=== PATIENT | female | born 2000 | race Caucasian/White ===

== ENCOUNTER 2018-06-01 07:24 | Emergency (ER) | payer OTHER ==
[~2018-06-01] VITALS: Ht 162.6 cm; Wt 83.2 kg
[2018-06-01 08:29] LABS: MEAN CORPUSCULAR HEMOGLOBIN 30.2 pg (27.0-34.8); MEAN CORPUSCULAR VOLUME 88.8 fL (80-100); MEAN PLATELET VOLUME 8.7 fL (7.4-10.4); PLATELET COUNT 224 x10^3/uL (130-400); RED BLOOD COUNT 4.59 x10^6/uL (3.82-5.3); RED CELL DISTRIBUTION WIDTH 12.5 % (9.6-15.2)
[2018-06-01 08:33] LABS: ALANINE AMINOTRANSFERASE 18 U/L (12-78); ALBUMIN 3.5 g/dL (3.4-5.0); ANION GAP 9 mmol/L (5-15); CALCIUM 8.6 mg/dL (8.5-10.1); CHLORIDE 110 mmol/L (98-107); CREATININE 1.12 mg/dL (0.55-1.02)
[2018-06-01 08:36] LABS: ALKALINE PHOSPHATASE 42 U/L (45-117); BILIRUBIN,TOTAL 0.3 mg/dL (0.2-1.0)
[2018-06-01 08:45] LABS: HCG UR SG 1.016 (1.003-1.030)
[2018-06-01 08:46] LABS: CULTURE INDICATED? YES; MICROSCOPIC INDICATED
[2018-06-01 08:46] LABS: BASOPHILS # (AUTO) 0.04 x10^3/uL (0-0.3); BASOPHILS % (AUTO) 0 % (0-1); EOSINOPHILS # (AUTO) 0.15 x10^3/uL (0-0.8); EOSINOPHILS % (AUTO) 1 % (1-7); LYMPHOCYTES # (AUTO) 2.34 x10^3/uL (1-6.1); LYMPHOCYTES % (AUTO) 19 % (22-44); MD SCAN; MONOCYTES # (AUTO) 1.75 x10^3/uL (0-1.4); MONOCYTES % (AUTO) 14 % (2-9); NEUTROPHILS # (AUTO) 7.93 x10^3/uL (1.8-8.0); NEUTROPHILS % (AUTO) 65 % (42-75)
[2018-06-01 10:31] VITALS: BP 103/53
== END 2018-06-01 10:33 | disposition home or self-care (01) ==
LOC: ED 09:23
DX: N10 Acute pyelonephritis (principal); N39.0 Urinary tract infection, site not specified
CPT/HCPCS: 36415; 76830; 80053; 81001; 81025; 83690; 85025; 87086; 99285

== ENCOUNTER 2019-02-26 04:00 | Emergency (ER) | payer OTHER ==
[~2019-02-26] VITALS: Ht 160 cm; Wt 94.1 kg
[2019-02-26] MEDS ORDERED: ONDANSETRON 2MG/ML, 2ML ONE (04:18)
[2019-02-26] MEDS ORDERED: MORPHINE SULFATE 4 MG/ML, 1ML ONE ×2 (04:18→05:57)
[2019-02-26] MEDS ORDERED: SODIUM CHLORIDE FLUSH 10ML SYR IVF ONE (04:30)
[2019-02-26] MEDS ORDERED: ONDANSETRON 2MG/ML, 2ML IVPush ONE (04:30)
[2019-02-26 04:45] LABS: BASOPHILS # (AUTO) 0.02 x10^3/uL (0-0.3); BASOPHILS % (AUTO) 0 % (0-1); EOSINOPHILS % (AUTO) 1 % (1-7); LYMPHOCYTES # (AUTO) 1.46 x10^3/uL (1-6.1); LYMPHOCYTES % (AUTO) 12 % (22-44); MD NO; MEAN CORPUSCULAR HEMOGLOBIN 30.5 pg (27.0-34.8); MEAN CORPUSCULAR HGB CONC 33.4 g/dL (32.4-35.8); MEAN CORPUSCULAR VOLUME 91.2 fL (80-100); MONOCYTES # (AUTO) 0.41 x10^3/uL (0-1.4); MONOCYTES % (AUTO) 3 % (2-9); NEUTROPHILS # (AUTO) 10.22 x10^3/uL (1.8-8.0); NEUTROPHILS % (AUTO) 84 % (42-75); PLATELET COUNT 312 x10^3/uL (130-400); RED BLOOD COUNT 4.82 x10^6/uL (3.82-5.3); RED CELL DISTRIBUTION WIDTH 12.9 % (9.6-15.2)
--- NOTE | 2019-02-26 04:55 | NUR ---
Pt presents to ed c/o cp this evening and n/v w/ abd pain. States cp worse w/ deep inspiration and has hx of control and a recent long travel. Denies any pains in legs or redness or swelling. States poor po intake yesterday. All monitoring applied. Vss. Call light within reach. This rn attempted multiple iv's unsuccessfully. Vinod rn at bedside to attempt.
[2019-02-26 04:57] LABS: ALANINE AMINOTRANSFERASE 29 U/L (12-78); ALBUMIN 3.4 g/dL (3.4-5.0); ANION GAP 9 mmol/L (5-15); CHLORIDE 108 mmol/L (98-107); CREATININE 0.77 mg/dL (0.55-1.02)
[2019-02-26] MEDS: MORPHINE SULFATE 4 MG/ML, 1ML IVPush PRN ×2 (05:00→05:59)
[2019-02-26 05:02] LABS: ALKALINE PHOSPHATASE 43 U/L (45-117); BILIRUBIN,TOTAL 0.3 mg/dL (0.2-1.0); TOTAL PROTEIN 8.3 g/dL (6.4-8.2)
--- NOTE | 2019-02-26 05:37 | NUR ---
Pt back from ct. No immediate needs. States decrease in pain to a comfortable level.
[2019-02-26 05:53] LABS: CULTURE INDICATED? YES; MICROSCOPIC INDICATED
--- NOTE | 2019-02-26 06:02 | NUR ---
Given 2nd dose of morphine for increase in pain again. CTA to be accomplished per pa verbal order. Awaiting ct transport.
--- NOTE | 2019-02-26 06:10 | NUR ---
Pt to ct.
[2019-02-26] MEDS ORDERED: OMNIPAQUE 350 MG/ML, 100ML BOTTLE ONE (06:20)
--- NOTE | 2019-02-26 07:42 | NUR ---
PT GIVEN DISCHARGE INSTRUCTIONS, UNDERSTANDING STATED, PIV REMOVED, PT TOLERATED WELL. ALL QUESTIONS ANSWERED.
[2019-02-26 07:52] VITALS: BP 138/63
== END 2019-02-26 07:54 | disposition home or self-care (01) ==
LOC: ED 06:08
DX: K80.20 Calculus of gallbladder without cholecystitis without obstruction (principal); R10.13 Epigastric pain
CPT/HCPCS: 36415; 71275; 76700; 80053; 81001; 83690; 84703; 85025; 85379; 87086; 93005; 96374; 96375; 96376; 99284; J2270; J2405; Q9967

== ENCOUNTER 2019-03-14 06:27 | Day surgery (SDC) | payer OTHER ==
[~2019-03-14] VITALS: Ht 162.6 cm; Wt 93.0 kg
[2019-03-14] MEDS ORDERED: LACTATED RINGERS 1,000 ML IV SCH (07:01)
[2019-03-14 07:07] VITALS: BP 114/71
[2019-03-14] MEDS ORDERED: GABAPENTIN 300 MG CAPSULE PO ONE (07:30)
[2019-03-14] MEDS ORDERED: SCOPOLAMINE PATCH, 1.5MG PATCH.TD72 TD ONE (07:30)
[2019-03-14] MEDS ORDERED: ACETAMINOPHEN 500 MG TABLET PO ONE (07:30)
[2019-03-14] MEDS ORDERED: INDOCYANINE GREEN 25 MG VIAL ONE (07:40)
[2019-03-14] MEDS ORDERED: BUPIVACAINE/PF-EPI 0.5% 1:200K ONE (07:40)
[2019-03-14] MEDS ORDERED: INDOCYANINE GREEN 25 MG VIAL IVPush ONE (08:00)
[2019-03-14] MEDS ORDERED: FENTANYL PF 250 MCG/5ML ONE (08:14)
[2019-03-14] MEDS ORDERED: MIDAZOLAM 1 MG/ML, 2ML ONE (08:14)
[2019-03-14] MEDS ORDERED: CEFOTETAN PMX 2GM/50ML 50 ML ONE (08:17)
[2019-03-14] MEDS ORDERED: PROPOFOL 10 MG/ML, 20ML ONE (08:18)
[2019-03-14] MEDS ORDERED: NEOSTIGMINE 1 MG/ML, 10ML ONE (08:18)
[2019-03-14] MEDS ORDERED: GLYCOPYRROLATE 0.2MG/1ML, 5ML ONE (08:18)
[2019-03-14] MEDS ORDERED: ROCURONIUM 10MG/ML,5ML ONE (08:18)
[2019-03-14] MEDS ORDERED: ONDANSETRON 2MG/ML, 2ML ONE (08:26)
[2019-03-14] MEDS ORDERED: DEXAMETHASONE 4 MG/ML, 1ML ONE (08:26)
[2019-03-14] MEDS ORDERED: PROMETHAZINE 25 MG SUPP PR PRN (08:30)
[2019-03-14] MEDS ORDERED: ONDANSETRON 2MG/ML, 2ML IV PRN (08:30)
[2019-03-14] MEDS ORDERED: MEPERIDINE/PF 25MG/0.5ML IVPush PRN (08:30)
[2019-03-14] MEDS ORDERED: LABETALOL 5MG/ML, 20ML IV PRN (08:30)
[2019-03-14] MEDS ORDERED: hydrALAzine 20 MG/ML, 1ML IV PRN (08:30)
[2019-03-14] MEDS ORDERED: HALOPERIDOL 5 MG/ML IV PRN (08:30)
[2019-03-14] MEDS ORDERED: ONDANSETRON ODT 8 MG PO PRN (08:30)
[2019-03-14] MEDS ORDERED: HYDROmorphone 2 MG/ML, 1ML IVPush PRN (08:30)
[2019-03-14] MEDS ORDERED: PROMETHAZINE 12.5 MG SUPP PR PRN (08:30)
[2019-03-14] MEDS ORDERED: PROMETHAZINE 25 MG/ML, 1ML IV PRN (08:30)
[2019-03-14] MEDS ORDERED: MORPHINE SULFATE 4 MG/ML, 1ML IVPush PRN (08:30)
[2019-03-14] MEDS ORDERED: PROMETHAZINE 25 MG/ML, 1ML IM PRN ×2 (08:30)
[2019-03-14] MEDS ORDERED: KETOROLAC 30 MG/1 ML ONE (09:08)
[2019-03-14] MEDS ORDERED: MEPERIDINE/PF 25MG/ML,1ML ONE (10:25)
[2019-03-14] MEDS ORDERED: FENTANYL PF 100 MCG/2ML ONE (10:25)
[2019-03-14] MEDS ORDERED: OXYcodone 5 MG/5 ML ORAL.SOL UDC ONE (10:25)
[2019-03-14] MEDS: FENTANYL PF 100 MCG/2ML IV PRN ×2 (10:29→10:36)
[2019-03-14] MEDS: OXYcodone 5 MG/5 ML ORAL.SOL UDC PO PRN ×2 (10:31→12:07)
== END 2019-03-14 15:05 | disposition home or self-care (01) ==
LOC: OUT 06:27
PROVIDERS: ATTEND Surgery
DX: K80.10 Calculus of gallbladder with chronic cholecystitis without obstruction (principal); E66.9 Obesity, unspecified; Z72.89 Other problems related to lifestyle; Z79.3 Long term (current) use of hormonal contraceptives; Z79.899 Other long term (current) drug therapy; Z91.018 Allergy to other foods; Z83.79 Family history of other diseases of the digestive system; Z82.49 Family history of ischemic heart disease and other diseases of the circulatory system
CPT/HCPCS: 47562; 81025; 88304; J1100; J1885; J2250; J2405; J2704; J2710; J3010; J3490; J7120; S2900